=== PATIENT | male | born 1940 | race Caucasian/White ===

== ENCOUNTER 2019-06-28 07:38 | Day surgery (SDC) | payer OTHER, BC ==
[2019-06-28 08:43] VITALS: BMI 23.6
[2019-06-28 09:38] VITALS: TEMP 97.9
[2019-06-28 10:20] VITALS: BP 160/65; PULSE 54
== END 2019-06-28 10:32 | disposition home or self-care (01) ==
LOC: JASU-ENDO 07:38
PROVIDERS: ATTEND Internal Medicine Gastroenterology
PROC: 0DJD8ZZ Inspection of Lower Intestinal Tract, Via Natural or Artificial Opening Endoscopic (ICD-10-PCS; principal; 2019-06-28 09:00)
DX: Z12.11 Encounter for screening for malignant neoplasm of colon (principal); K57.30 Diverticulosis of large intestine without perforation or abscess without bleeding; K64.8 Other hemorrhoids; Z85.46 Personal history of malignant neoplasm of prostate